=== PATIENT | female | born 1955 | race Caucasian/White ===

== ENCOUNTER → 2016-07-15 | Outpatient (CLI) | payer OTHER, MEDICAID | LOC: FIMAGING 09:44 | PROVIDERS: ATTEND Physician Assistant | DX: M54.12 Radiculopathy, cervical region (principal); M50.31 Other cervical disc degeneration, high cervical region; M50.321 Other cervical disc degeneration at C4-C5 level ==

== ENCOUNTER → 2017-04-06 | Outpatient (CLI) | payer OTHER, MEDICAID | LOC: BHFA 11:30 | PROVIDERS: ATTEND Internal Medicine Cardiovascular Disease | DX: R01.1 Cardiac murmur, unspecified (principal) ==

== ENCOUNTER → 2017-07-03 | Outpatient (CLI) | payer OTHER, MEDICAID ==
[~2017-07-03] MED LIST: IOPAMIDOL (ISOVUE-300) 100 ML BTL ONE
== END ==
LOC: FIMAGING 11:48
PROVIDERS: ATTEND Family Medicine
DX: R10.13 Epigastric pain (principal); R14.0 Abdominal distension (gaseous); K59.00 Constipation, unspecified; K46.9 Unspecified abdominal hernia without obstruction or gangrene; I70.0 Atherosclerosis of aorta; M41.9 Scoliosis, unspecified; M51.36 Other intervertebral disc degeneration, lumbar region; M48.061 Spinal stenosis, lumbar region without neurogenic claudication; Z85.3 Personal history of malignant neoplasm of breast
CPT/HCPCS: 74177; Q9967

== ENCOUNTER → 2017-08-15 | Outpatient (CLI) | payer OTHER, MEDICAID | LOC: BMCIMAGING 15:15 | PROVIDERS: ATTEND Internal Medicine Hematology & Oncology | DX: Z13.820 Encounter for screening for osteoporosis (principal); M85.89 Other specified disorders of bone density and structure, multiple sites; Z85.3 Personal history of malignant neoplasm of breast; Z87.81 Personal history of (healed) traumatic fracture ==

== ENCOUNTER 2018-04-27 10:49 | Observation (INO) | payer OTHER, MEDICAID ==
[2018-04-27] MEDS ORDERED: LR 1,000 ML IV ONE (10:58)
--- NOTE | 2018-04-27 13:58 | PDANEPAE ---
ANE History of Present Illness EGD. patient sustained syncopal fall this AM - workup in ED negative for acute intracranial process. ANE Past Medical History - Cardiovascular History Hx Hypertension: No Hx Arrhythmias: No Hx Chest Pain: No Hx Coronary Artery / Peripheral Vascular Disease: No Hx CHF / Valvular Disease: No Hx Palpitations: No Cardiovascular History Comment: pt unsure if she has any cardiac dx. Pt stated her Dr said not to worry there might be a slight thing - Pulmonary History Hx COPD: No Hx Asthma/Reactive Airway Disease: No Hx Recent Upper Respiratory Infection: Yes Hx Oxygen in Use at Home: No Hx Sleep Apnea: Yes Sleep Apnea Screening Result - Last Documented: Positive Pulmonary History Comment: hx of jen- has home o2 but doesn't use - Neurologic History Hx Cerebrovascular Accident: No Hx Seizures: No Hx Dementia: No Neurologic History Comment: DDD - Endocrine History Hx Diabetes: No Hypothyroid: Yes Obesity: no Endocrine History Comment: hypothyroidism. hx of hypoglycemia - Renal History Hx Renal Disorders: No - Liver History Hx Hepatic Disorders: No - Neurological & Psychiatric Hx Hx Neurological and Psychiatric Disorders: Yes Neurological / Psychiatric History Comment: anxiety. depression - Cancer History Hx Cancer: Yes Cancer History Comment: Left Breast CA with bilateral mastectomy and reconstruction - Congenital Disorder History Hx Congenital Disorders: No - GI History Hx Gastrointestinal Disorders: Yes Gastrointestinal History Comment: hx of rectal prolapse with colon resection. bloating lots of gas - Other Health History Other Health History: fibromyalgia. full set of dentures. wears glasses. Pt states that she thinks she has a hole in her nose as she whistles - Chronic Pain History Chronic Pain: Yes (neck, shoulders and back) - Surgical History Prior Surgeries: 03/16/15 right TKA with Latha. 08/14/14 Bilateral mastectomy and reconstruction with Wilberto/ [facility]. 01/24/13 EUA for rectal prolapse surgery with Jorge. 08/28/12 low anterior colon resection d/t rectal prolapse with Jorge TIMUR Review of Systems Review of Systems: - Exercise capacity METS (RN): 3 METS ANE Patient History - Allergies Allergies/Adverse Reactions: No Known Allergies Allergy (Verified 04/27/18 11:37) - Home Medications Home medications: home medication list seen and reviewed Home Medications: DULoxetine [Cymbalta 60 MG (*)] 02/28/14 [Last Taken 03/15/15 21:00] LORazepam [Ativan (*)] PRN 02/28/14 [Last Taken 03/16/15 04:30] Levothyroxine [Synthroid 100 mcg (*)] 02/28/14 [Last Taken 03/16/15 04:30] Herbals/Supplements -Info Only 07/25/14 [Last Taken 03/09/15] Exemestane [Aromasin] 02/20/15 [Last Taken 03/15/15 21:00] oxyCODONE CR [Oxycontin] TID 02/20/15 [Last Taken 03/16/15 04:30] oxyCODONE IR [Oxycodone Ir (*)] TID 02/20/15 [Last Taken 03/16/15 04:30] Ibuprofen [Motrin (*)] PRN 02/25/15 [Last Taken 03/02/15] Flexeril 10 MG (*) 11/27/17 [Last Taken Unknown] QUEtiapine FUMARATE HS 11/27/17 [Last Taken Unknown] buPROPion [Wellbutrin 75mg (*)] 75 mg PO 04/27/18 [Last Taken Unknown] - Smoking Hx Smoking Status: Never smoked - Family Anes Hx Family Hx Anesthesia Complications: none ANE Labs/Vital Signs - Vital Signs Height: 157.48 cm Weight: 56.699 kg ANE Physical Exam - Airway Neck exam: FROM Mallampati Score: Class 1 Mouth exam: poor dentition - Pulmonary Pulmonary: no respiratory distress - Cardiovascular Cardiovascular: regular rate and rhythym - ASA Status ASA Status: III ANE Anesthesia Plan Anesthesia Plan: GA with mask
[2018-04-27] MEDS ORDERED: fentaNYL 100 MCG/2 ML INJ ONE (14:00)
[2018-04-27] MEDS ORDERED: PROPOFOL 200 MG/20 ML VIAL ONE ×2 (14:00)
[2018-04-27] MEDS ORDERED: LIDOCAINE 2% 5 ML SDV ONE (14:04)
--- NOTE | 2018-04-27 14:07 | PDGENHP ---
History & Physical Chief Complaint: iron def anemia History of Present Illness: iron def anmia, hx breast cancer Pertinent Past, Social, Family History: no tobacoo, no aclohol. no cc. hx breat cancer, sleep apnea Relevant Physical Exam: A+Ox3. CTA. S1s2. +BS soft, nt Cardiorespiratory Assessment: class 3
[2018-04-27] MEDS ORDERED: LR 500 ML IV PRN (14:33)
[2018-04-27] MEDS ORDERED: oxyCODONE IR 5 MG TAB PO PRN (14:33)
[2018-04-27] MEDS ORDERED: NALOXONE HCL 0.4 MG/ML INJ IVP PRN (14:33)
[2018-04-27] MEDS ORDERED: ONDANSETRON 4 MG/2 ML VIAL IVP PRN ×2 (14:33→17:00)
[2018-04-27] MEDS ORDERED: HYDROCODONE/APAP 5/325 TAB PO PRN (14:33)
[2018-04-27] MEDS ORDERED: ACETAMINOPHEN 500 MG TAB PO PRN (14:33)
[2018-04-27] MEDS ORDERED: ALBUTEROL 3 ML DEYVIAL IH PRN (14:33)
[2018-04-27] MEDS ORDERED: HYDROmorphONE/DILAUDID 2 MG/ML INJ IVP PRN (14:33)
[2018-04-27] MEDS ORDERED: DIAZEPAM 5 MG/ML 1 ML SYR IVP PRN (14:33)
[2018-04-27] MEDS ORDERED: fentaNYL 100 MCG/2 ML INJ IVP PRN (14:33)
--- NOTE | 2018-04-27 14:33 | POSTANESTH ---
Post Anesthetic Evaluation Cardiovascular Status: Normal, Stable Respiratory Status: Normal, Stable Level of Consciousness/Mental Status: Can Participate in Eval, Mildly Sleepy, Arousable Pain Control: Adequate, Prn Tx Ordered Nausea/Vomiting Control: Adequate, Prn Tx Ordered Complications Possibly Related to Anesthesia: None Noted
--- NOTE | 2018-04-27 15:04 | GIREPORT ---
[facility] Surgical Services - Endoscopy Department Patient Name: Toma Baeza Procedure Date: 04/27/2018 2:12 PM Patient Type: Outpatient Attending MD/ ER Physician: Joaquin Rendon MD Procedure: Upper GI endoscopy Indications: Suspected upper gastrointestinal bleeding in patient with unexplained i ammon deficiency anemia Providers: Joaquin Rendon MD Referring MD: Kimberlee Taylor MD, Jluis Monroy MD Medicines: Propofol per Anesthesia Complications: No immediate complications. Estimated blood loss: Minimal. Description of Procedure: After obtaining informed consent, the endoscope was passed under direct vision. Throughout the procedure, the patient's blood pressure, pulse, and oxygen saturations were monitored continuously. The Endoscope was intro duced through the mouth, and advanced to the third part of duodenum. The uppe r GI endoscopy was accomplished without difficulty. The patient tolerated th e procedure well. Findings: The examined esophagus was normal. Scattered mild inflammation characterized by erosions, erythema, friabi lity and granularity was found at the incisura and in the gastric antrum. Biopsies were taken with a cold forceps for histology. Estimated blood loss was minimal. The examined duodenum was normal. Biopsies for histology were taken wit h a cold forceps for evaluation of celiac disease. Estimated blood loss was minimal. The exam was otherwise without abnormality. Estimated Blood Loss: Estimated blood loss was minimal. Post Op Diagnosis: - Normal esophagus. - Gastritis. Biopsied. - Normal examined duodenum. Biopsied. - The examination was otherwise normal. Recommendation: - Await pathology results. - My office will call with the pathology result with 5-7 days. If you h ave not heard from my office by 12-14, do not assume the pathology is enrique l, please call [phone] to get the pathology results. - Use Protonix (pantoprazole) 40 mg PO daily. - Perform a colonoscopy today. - Return to referring physician as previously scheduled. - Thank you for allowing me to help in your patient's care. Do not hesi fleming to call with any questions. Attending Participation: I personally performed the entire procedure. Julieta Puga M.D Joaquin Rendon MD 04/27/2018 3:03:30 PM This report has been signed electronicallyMatthew MD Julieta Number of Addenda: 0 Note Initiated On: 04/27/2018 2:12 PM [email or web address]
--- NOTE | 2018-04-27 15:42 | GIREPORT ---
[facility] Surgical Services - Endoscopy Department Patient Name: Toma Baeza Procedure Date: 04/27/2018 2:22 PM Patient Type: Outpatient Attending MD/ ER Physician: Joaquin Rendon MD Procedure: Colonoscopy Indications: Iron deficiency anemia Providers: Joaquin Rendon MD Referring MD: Kimberlee Taylor MD, Jluis Monroy MD Medicines: Propofol per Anesthesia = IV general with spontaneous respirations Complications: No immediate complications. Estimated blood loss: None. Description of Procedure: After obtaining informed consent, the scope was passed under direct vis ion. Throughout the procedure, the patient's blood pressure, pulse, and oxyg en saturations were monitored continuously. The Colonoscope with irrigatio n channel was introduced through the anus and advanced to the cecum, identified by the appendiceal orifice, ileocecal valve and palpation. T he colonoscopy was performed without difficulty. The patient tolerated the procedure well. The quality of the bowel preparation was poor. Findings: The digital rectal exam findings include decreased sphincter tone. A large amount of extensive amounts of stool was found in the entire co jones, interfering with visualization. Lavage of the area was performed using copious amounts of sterile water, resulting in incomplete clearance wit h continued poor visualization. The colon (entire examined portion) appeared normal. The exam was otherwise without abnormality. Estimated Blood Loss: Estimated blood loss: none. Post Op Diagnosis: - Preparation of the colon was poor. - Decreased sphincter tone found on digital rectal exam. - Stool in the entire examined colon. - The entire examined colon is normal. No large lesions noted, may have missed small lesions - good view of cecum and ascending, poor view of splenic flexure and distal colon. - The examination was otherwise normal. - No specimens collected. Recommendation: - Resume previous diet. - Repeat colonoscopy in 3 years for screening purposes. - Patient has a contact number available for emergencies. The signs and symptoms of potential delayed complications were discussed with the pat ient. Return to normal activities tomorrow. Written discharge instructions we re provided to the patient. - Continue present medications. - Discharge patient to home (ambulatory). - Return to primary care physician as previously scheduled. - Thank you for allowing me to help in your patient's care. Do not hesi fleming to call with any questions. - See EGD for other recommendations - it anemia doesn't resolve with treatement of her gastritis, then she will need a small bowel capsule s tudy. Attending Participation: I personally performed the entire procedure. Julieta Puga M.D Joaquin Rendon MD 04/27/2018 3:42:08 PM This report has been signed electronicallyMattbrent Rendon MD Number of Addenda: 0 Note Initiated On: 04/27/2018 2:22 PM Total Procedure Duration Time 0 hours 31 minutes 13 seconds [email or web address]
[2018-04-27] MEDS ORDERED: ONDANSETRON DISINTEGRATING 4 MG TAB PO PRN (17:00)
[2018-04-27] MEDS ORDERED: ACETAMINOPHEN 325 MG TAB PO PRN (17:00)
[2018-04-27] MEDS ORDERED: NS W/ 20 KCl/L 1,000 ML IV SCH (17:00)
--- NOTE | 2018-04-27 18:06 | GHP ---
DATE OF ADMISSION: 04/27/2018 CHIEF COMPLAINT: Frequent falls. HISTORY OF PRESENT ILLNESS: This is a 62-year-old female who, today, underwent an elective upper end oscopy as well as colonoscopy. When she presented for her workup, she reported that she had fallen t his morning and hit her head. She was thus sent down to the emergency department for clearance. She had an unremarkable head CT scan at that time. She did have a wound there that was cleaned extensiv carlos. She was cleared for her endoscopies. She then underwent upper and lower endoscopies. Her uppe r endoscopy showed gastritis that was biopsied. Recommendation was to use Protonix daily. The reaso n for these procedures was anemia. She then underwent a colonoscopy. This was relatively unremarkab le. I was asked to admit the patient because of the falls and that she does not have anybody to look after her tonight. She tells me that she fell this morning because she was dizzy and lightheaded. She fell forward and hit her head. She did not lose consciousness. She has not had any falls other than this in the last year. She believes that this was due to her fasting as well as the prep that she did for her colono scopy. She is not having any chest pain or shortness of breath. PAST MEDICAL/SURGICAL HISTORY: 1. Major depressive disorder. 2. Hypothyroid. 3. Fibromyalgia. 4. Chronic pain, on continuous narcotics. 5. Breast cancer, status post mastectomy, on hormonal treatment. 6. Rectal prolapse, status post rectopexy. 7. Right knee surgery. 8. Spinal injections. MEDICATIONS: Please see medication reconciliation. ALLERGIES: No known drug allergies. FAMILY HISTORY: Mother had liver cancer. SOCIAL HISTORY: She does not drink or smoke. She lives alone with her cat. REVIEW OF SYSTEMS: A 10-point review of systems is conducted and is negative except per HPI. PHYSICAL EXAM: VITAL SIGNS: Blood pressure 121/68, heart rate 76, respiration rate 19, sat 94% on r oom air, temperature is 36.8. GENERAL: The patient is a pleasant female who appears somewhat sleepy , but wakes easily and answers questions appropriately. HEENT: Shows her to have a bandage over her forehead. CARDIOVASCULAR: Regular rate and rhythm. No murmurs, rubs, or gallops. PULMONARY: Sara gs clear to auscultation bilaterally. ABDOMEN: Soft, nontender, nondistended. SKIN: Shows no rash . : No Bhagat. NEUROLOGIC: Shows her to be alert and oriented x3. She has a nonfocal neurologic exam. PSYCHIATRIC: Shows her to have a mildly depressed affect. LABORATORY DATA: Notable for of potassium a 3.2, calcium 7.9, hemoglobin of 11.1, white count of 5.2 . DATA: 1. I reviewed her head CT, as above. 2. I personally viewed and interpreted her EKG. This shows sinus rhythm. She has mild T-wave judd ening in V1, V2, and V3. IMPRESSION/PLAN: 1. Fall: Appears mechanical. Certainly may be due to dehydration. Would also be concerned that estevan castellanos is on multiple psychoactive medications; I am counting 9 based on her med list. Not finding anythi ng else on my exam or per history of serious concern. I think it is reasonable to have PT and OT see her. We will ask Case Management for their input as well to make sure she has a safe living situati on. Will discuss with her regarding decreasing some of her centrally-acting medications, if she is w illing. 2. Anemia: This was the reason she had her upper and lower endoscopies today. She is followed by Marina Taylor. Her counts are down slightly from her last check; will recheck again tomorrow morning. This is normocytic, potentially due to gastritis. 3. Hypokalemia: Will replete with IV fluids and potassium. 4. Chronic pain on continuous narcotics. Will continue these for now. 5. Breast cancer. Continue exemestane. 6. Hypothyroid: Synthroid. /[id number]/MODL
[2018-04-28 05:17] LABS: PLATELET COUNT 309 10^3/uL (150-400)
[2018-04-28] MEDS ORDERED: POTASSIUM CL 20 MEQ TAB PO ONE (06:37)
[2018-04-28] MEDS ORDERED: PANTOPRAZOLE SODIUM 40 MG TAB PO SCH (09:00)
[2018-04-28 15:10] VITALS: BP 144/87
--- NOTE | 2018-04-28 16:21 | ASMTLACE ---
LACE Length of stay for Answers: Less than 1 day current admission Acuity / Level of Answers: No Care: Did the patient have an inpatient admission? Comorbidities - select Answers: Any tumor (including all that apply lymphoma or leukemia) Opioid dependence / Chronic pain Other Notes: Hypothyroid, fibromyalg ia # of Emergency department Answers: 1-2 visits in the last 6 months Social determinants Answers: Mental health diagnosis (anxiety, depression, pers onality disorders, etc.) Score: 11 Date Signed: 04/28/2018 04:21 PM Electronically Signed By:Fariha Jones RN
--- NOTE | 2018-04-28 16:31 | ASDISCHSUM ---
Discharge Information Plan Status:Home with No Needs Medically Cleared to Leave:04/27/2018 Discharge Date:04/28/2018 04:01 PM CM D/C Disposition:Home, Routine, Self-Care ADT D/C Disposition:Home, Routine, Self-Care Projected Discharge Date:04/28/2018 04:01 PM Transportation at D/C:Family Discharge Delay Reason: Follow-Up Date:04/28/2018 04:01 PM Discharge Slot:2 - 12:01 pm - 18:00 pm Final Diagnosis:Mechanical fall, anemia, s/p elective upper EGD and colonoscopy Placement Information Patient Contact Information Contact Name:PASQUALE Relationship:Daughter Address: City:[place] Alternate Phone: [facility]/Zip Code:[place] Email: Financial Information Financial Class:Medicare Primary Plan Desc:MEDICARE OUTPATIENT Primary Plan Number:[id number] Secondary Plan Desc:MEDICAID HEALTH [place] Secondary Plan Number:[id number] Assessment Information LACE LACE Length of stay for Answers: Less than 1 day current admission Acuity / Level of Answers: No Care: Did the patient have an inpatient admission? Comorbidities - select Answers: Any tumor (including all that apply lymphoma or leukemia) Opioid dependence / Chronic pain Other Notes: Hypothyroid, fibromyalg ia # of Emergency department Answers: 1-2 visits in the last 6 months Social determinants Answers: Mental health diagnosis (anxiety, depression, pers onality disorders, etc.) Score: 11 Date Signed: 04/28/2018 04:21 PM Electronically Signed By:Fariha Jones RN [facility] CM Progress Note CM Note CM Note Notes: Reviewed chart. Pt admitted for an elective upper EGD and colonscopy secondary to anemia. Pt reported a mechanical fall prior to her procedure and was sent to the ED for surgical clearance. History includes breast cancer, major depressive disorder, chronic pain with narcotic use, hypothyroid, fibromyalgia, rectal prolapse, and right knee surgery. Pt lives alone, she reports having an elevator to access her place. The pt also reports receiving private duty assistance two days per week for grocery shopping and house cleaning. PT/OT cleared pt for home. Pt to discharge home independently with no identified needs. No IM/RAMOS signed, admission less than 24 hrs. Pt to follow up as directed. CM available for any further issues or concerns. Discharge Plan: Home independently Date Signed: 04/28/2018 04:28 PM Electronically Signed By:Fariha Jones RN Intervention Information
--- NOTE | 2018-04-28 21:24 | GDS ---
FINAL DIAGNOSES: 1. Status post EGD and colonoscopy. 2. Fall. 3. Anemia. 4. Hypokalemia. 5. Chronic pain on continuous narcotics. 6. Breast cancer. 7. Hypothyroid. HOSPITAL COURSE: This is a 62-year-old female, who had a planned outpatient upper endoscopy as well as lower endoscopy scheduled for anemia. When she reported, she noted that she had fallen and hit he r head earlier in the day. She was thus taken down to the ED and cleared for her procedures. Postop eratively, Dr. Rendon was concerned about her and requested that she would be admitted overnight. Nancy castellanos notably had some rudolph on her face from when she had been cooking lobato with a grease splatter. Nancy castellanos tells me she had not lost consciousness. She had fallen because she was dizzy, lightheaded as she had been fasting and undergoing a colonoscopy prep. She received hydration overnight. She was monit ored on telemetry with no events. She was seen by social work case manager who felt as though her living situati on is reasonable (she lives alone, but she has help twice a week.) She was seen by PT and OT, who luana th cleared her for discharge home. She was thus discharged in stable condition. I am concerned that her multiple psychoactive medications are impairing her overall quality of life and would consider a s an outpatient titrating these down. She was otherwise discharged in stable condition. STUDIES PENDING AT TIME OF DISCHARGE: Pathology from her endoscopy. She should follow up with Dr. Rendon for this. /[id number]/MODL
== END 2018-04-28 16:01 | disposition home or self-care (01) ==
LOC: FSGY 10:49 → F3E 17:00 → F3N 18:46
PROVIDERS: ADMIT Student in an Organized Health Care Education/Training Program; ATTEND Student in an Organized Health Care Education/Training Program
DX: S09.90XA Unspecified injury of head, initial encounter (principal); D50.9 Iron deficiency anemia, unspecified; W19.XXXA Unspecified fall, initial encounter; K29.70 Gastritis, unspecified, without bleeding; T20.00XA Burn of unspecified degree of head, face, and neck, unspecified site, initial encounter; X10.2XXA Contact with fats and cooking oils, initial encounter; Y92.000 Kitchen of unspecified non-institutional (private) residence as the place of occurrence of the external cause; E87.6 Hypokalemia; Y93.G3 Activity, cooking and baking; G89.29 Other chronic pain; Z85.3 Personal history of malignant neoplasm of breast; E03.9 Hypothyroidism, unspecified; E86.0 Dehydration; M79.7 Fibromyalgia; F32.9 Major depressive disorder, single episode, unspecified
CPT/HCPCS: 43239; 45378; 97161; 97165; 97535; G0378; G8978; G8979; G8980; G8987; G8988; G8989; J2704; J3010

== ENCOUNTER 2018-04-27 11:29 | Emergency (ER) | payer OTHER, MEDICAID ==
--- NOTE | 2018-04-27 11:59 | EDPHY ---
HPI/HX/ROS/PE/MDM Narrative: CHIEF COMPLAINT: Syncope, fall, head injury HPI: The patient is a 62 y/o female complaining of headache secondary to a syncopal event and fall at home this morning. She started a colon prep regimen yesterday for a colonoscopy and endoscopy scheduled later today. While getting dressed in her apartment around 10:00 she became lightheaded and fell, striking her forehead. She does not think she lost consciousness and remembers the entire event. She denies other trauma, weakness, paresthesias, midline spinal pain, recent illness, or other recent trauma. She currently feels nearly back to baseline. REVIEW OF SYSTEMS: A comprehensive 10 system review of systems is otherwise negative aside from elements mentioned in the history of present illness. PMH: Rectal prolapse with repairs x2, fibromyalgia, depression, anxiety, chronic back pain, hypothyroidism, bilateral mastectomy, sleep apnea. SOCIAL HISTORY: Lives in [place]. Disabled. Single. PHYSICAL EXAM: General:Patient is alert, in no acute distress. Head: Large hematoma right side of forehead with L-shaped laceration, 2cm total length - does not appear acute. ENT:Eyes are normal to inspection. ENT inspection normal. Neck: Normal inspection. Full range of motion. Respiratory:No respiratory distress. Breath sounds normal bilaterally. Cardiovascular: Regular rate and rhythm. Strong peripheral pulses. Normal cap refill. Abdomen:The abdomen is nontender to palpation. There are no peritoneal signs. Back: Normal to inspection. No tenderness to palpation. Skin: Normal color. No rash. Warm and dry. Extremities: Normal appearance. Full range of motion. Neuro: Oriented x3. Normal motor function. Normal sensory function. ED Course: This is a 62 y/o female who presents after a syncopal event this morning a few hours ago. She has a right forehead hematoma and L-shaped laceration that does not appear to be a few hours old as she reports. Plan for IV, labs, EKG, head CT , wound care. 1L IV NS ordered. The 12 lead EKG was interpreted by myself. Sinus mechanism. See hard copy and/ or "tracemaster" electronic copy for interpretation. Head CT: negative. Wound on forehead cleaned extensively. This continues to appear like an injury that is at least 1-2 days old, but patient continues to state this occurred this morning. She states she would like to proceed with plan for endoscopy. I have contacted Dr. Rendon. 1314: Consulted with Dr. Rendon, GI. Patient will be discharged then go to their office to complete her scopes. - Data Points Imaging Results: Imaging Impressions Head CT 04/27/18 12:02 Impression: No acute intracranial process. Imaging: Discussed imaging studies w/ call out operator Radiologist, I viewed and interpreted images myself Laboratory Results: Laboratory Results 04/27/18 12:00 04/27/18 12:00 04/27/18 04/27/18 12:00 12:00 WBC 5.24 10^3/uL 10^3/uL (3.80-9.50) RBC 4.03 10^6/uL L 10^6/uL (4.18-5.33) Hgb 11.1 g/dL L g/dL (12.6-16.3) Hct 33.5 % L % (38.0-47.0) MCV 83.1 fL fL (81.5-99.8) MCH 27.5 pg L pg (27.9-34.1) MCHC 33.1 g/dL g/dL (32.4-36.7) RDW 14.6 % % (11.5-15.2) Plt Count 293 10^3/uL 10^3/uL (150-400) MPV 9.0 fL fL (8.7-11.7) Neut % (Auto) 64.7 % % (39.3-74.2) Lymph % (Auto) 20.2 % % (15.0-45.0) [place] % (Auto) 14.1 % H % (4.5-13.0) Eos % (Auto) 0.0 % L % (0.6-7.6) Baso % (Auto) 0.6 % % (0.3-1.7) Nucleat RBC Rel Count 0.0 % % (0.0-0.2) Absolute Neuts (auto) 3.39 10^3/uL 10^3/uL (1.70-6.50) Absolute Lymphs (auto) 1.06 10^3/uL 10^3/uL (1.00-3.00) Absolute Monos (auto) 0.74 10^3/uL 10^3/uL (0.30-0.80) Absolute Eos (auto) 0.00 10^3/uL L 10^3/uL (0.03-0.40) Absolute Basos (auto) 0.03 10^3/uL 10^3/uL (0.02-0.10) Absolute Nucleated RBC 0.00 10^3/uL 10^3/uL (0-0.01) Immature Gran % 0.4 % % (0.0-1.1) Immature Gran # 0.02 10^3/uL 10^3/uL (0.00-0.10) Sodium 137 mEq/L mEq/L (135-145) Potassium 3.2 mEq/L L mEq/L (3.5-5.2) Chloride 103 mEq/L mEq/L (97-110) Carbon Dioxide 25 mEq/l mEq/l (22-31) Anion Gap 9 mEq/L mEq/L (6-14) BUN 13 mg/dL mg/dL (7-23) Creatinine 0.7 mg/dL mg/dL (0.6-1.0) Estimated GFR > 60 Glucose 88 mg/dL mg/dL (70-100) Calcium 7.9 mg/dL L mg/dL (8.5-10.4) Medications Given: Discontinued Medications Sodium Chloride (Ns) 1,000 mls @ 0 mls/hr IV EDNOW ONE; Wide Open PRN Reason: Protocol Stop: 04/27/18 12:03 Last Admin: 04/27/18 12:03 Dose: 1,000 mls General Time Seen by Provider: 04/27/18 11:48 Initial Vital Signs: Initial Vital Signs Temperature (C) 37.1 C 04/27/18 11:35 Heart Rate 88 04/27/18 11:35 Respiratory Rate 18 04/27/18 11:35 Blood Pressure 126/80 H 04/27/18 11:35 O2 Sat (%) 96 04/27/18 11:35 O2 Delivery Mode Room Air Allergies/Adverse Reactions: No Known Allergies Allergy (Verified 04/27/18 11:37) Home Medications: Medication Instructions Recorded DULoxetine [Cymbalta 60 MG (*)] 02/28/14 LORazepam [Ativan (*)] PRN 02/28/14 Levothyroxine [Synthroid 100 mcg 02/28/14 (*)] Herbals/Supplements -Info Only 07/25/14 Exemestane [Aromasin] 02/20/15 oxyCODONE CR [Oxycontin] TID 02/20/15 oxyCODONE IR [Oxycodone Ir (*)] TID 02/20/15 Ibuprofen [Motrin (*)] PRN 02/25/15 Flexeril 10 MG (*) 11/27/17 QUEtiapine FUMARATE HS 11/27/17 buPROPion [Wellbutrin 75mg (*)] 75 mg PO 04/27/18 Departure - Departure Disposition: Home, Routine, Self-Care Clinical Impression: Hematoma, Dehydration Syncope Qualifiers: Syncope type: unspecified Qualified Code(s): R55 - Syncope and collapse Condition: Good Instructions: Dehydration (ED), Syncope (ED), Hematoma (ED) Additional Instructions: Go directly to Dr. Rendon's office for your endoscopy and colonoscopy. Return to the ED for any worsening of condition. Referrals: Jluis Monroy MD [Primary Care Provider] - As per Instructions Joaquin Renodn MD [Medical Doctor] - As per Instructions Report Scribed for: Arturo Aranda Report Scribed by: Cindy Miranda Date of Report: 04/27/18 Time of Report: 12:39 Physician Review and Approval Statement: Portions of this note were transcribed by an ED scribe. I personally performed the history, physical exam, and medical decision making; and confirm the accuracy of the information in the transcribed note.
[2018-04-27] MEDS ORDERED: NS 1,000 ML IV ONE (12:02)
[2018-04-27 12:09] LABS: PLATELET COUNT 293 10^3/uL (150-400)
[2018-04-27 13:58] VITALS: BP 126/75
--- NOTE | 2018-04-30 10:52 | CPEKG ---
Test Reason : OPEN Blood Pressure : / mmHG Vent. Rate : 079 BPM Atrial Rate : 079 BPM P-R Int : 171 ms QRS Dur : 105 ms QT Int : 409 ms P-R-T Axes : 053 075 066 degrees QTc Int : 469 ms Sinus rhythm Borderline T abnormalities, anterior leads Confirmed by Arturo Aranda ([id number] on 04/30/2018 10:52:25 AM Referred By: Confirmed By:Arturo Aranda
== END 2018-04-27 13:57 | disposition still patient (30) ==
DX: S00.83XA Contusion of other part of head, initial encounter (principal); R55 Syncope and collapse; E86.0 Dehydration; M79.7 Fibromyalgia; W19.XXXA Unspecified fall, initial encounter; Y92.009 Unspecified place in unspecified non-institutional (private) residence as the place of occurrence of the external cause; Y93.9 Activity, unspecified; Y99.9 Unspecified external cause status

== ENCOUNTER → 2018-07-11 | Outpatient (CLI) | payer OTHER, MEDICAID | LOC: FIMAGING 06:46 | PROVIDERS: ATTEND Orthopaedic Surgery Orthopaedic Surgery of the Spine | DX: M48.02 Spinal stenosis, cervical region (principal); M43.12 Spondylolisthesis, cervical region; M53.82 Other specified dorsopathies, cervical region | CPT/HCPCS: 82607-90; 84481-90 ==

== ENCOUNTER 2018-08-22 22:01 | Emergency (ER) | payer OTHER, MEDICAID ==
[2018-08-22] MEDS ORDERED: LET GEL TOPICAL 1 EA SYR TP ONE (22:31)
--- NOTE | 2018-08-22 22:31 | EDPHY ---
General Time Seen by Provider: 08/22/18 22:05 Narrative: CLINICAL IMPRESSION: Scalp laceration, closed head injury ASSESSMENT/PLAN: 63-year-old female presents to the emergency department by ambulance after she reportedly stumbled in the bathroom striking the right side of her head on the bathtub. No reported loss of consciousness, altered mental status, seizure activity, antegrade or retrograde amnesia, nausea or vomiting. Patient is very "twitchy", seemingly altered but reports me this is normal and due to her mental health condition. She adamantly denies drugs and alcohol. CT scan of the head and cervical spine shows no evidence of acute intracranial hemorrhage or fracture. Laceration repaired as per chart notes. Tetanus up-to-date. Patient was encouraged to follow up with her primary care doctor and mental health provider. Post concussive in 2nd impact syndromes discussed. Warning signs return to ED sooner outlined and discharge. DIFFERENTIAL DX: Differential diagnosis for headache includes but not limited to subarachnoid hemorrhage, migraine headache, migraine varient headache, tension headache and infectious causes such as meningitis, pharyngitis and sinusitis. ED PROCEDURES: See lab and/or imaging results below Laceration Repair Verbal consent obtained by patient. Risks discussed, including but not limited to infection, pain, retained foreign body, need for additional repair, poor cosmetic result, tendon damage, nerve damage, poor wound healing, vascular damage. Alternatives to repair discussed. [place] protocol used to establish correct patient, procedure, equipment, desktop support engineer, and site. Anesthesia obtained by local infiltration. Anesthetized with 0.5% bupivacaine with epi. Laceration location right temporal scalp, length 2.5 cm, depth 3 mm, Repair type simple. Patient was prepped and draped in usual sterile fashion. Hemostasis achieved with direct pressure. Wound explored through full range of motion and entire depth of wound probed and visualized with gloved finger. No suspicion for nerve damage, tendon damage, underlying fracture, vascular damage, foreign body, or contamination. Area was cleansed with Shur-Cl[place] and irrigated with sterile saline as per protocol. No foreign body or material removed. Repair method oneida. Six oneida placed. Well aligned, closely approximated. wound was dressed with nothing. Patient tolerated well with no immediate complications. Wound care: Clean and dry x 24 hours, gently clean with soap and water, cover with topical antibiotic ointment/bandage. Suture/Staple removal: 10 Days ED COURSE: 10:20 p.m.: Patient seen and assessed by myself. Alert, oriented, mildly altered although I believe this is patient's underlying psychiatric condition. Answering all questions. No complaints of severe pain. Plan for CT head and neck. CT head and cervical spine negative for acute bleeding and fracture CHIEF COMPLAINT: Closed head injury HPI: 63-year-old female presents to the emergency department by ambulance after she reportedly lost her balance walking into the bathroom and fell striking the right side of her head on the bathtub. She reports no loss of consciousness. She called the ambulance. She reports she was trying to get into the tub. She denies headache, dizziness or vertigo. No nausea or vomiting. No neck pain. No upper extremity weakness or numbness. She is not anticoagulated. No history of recent closed head injury. She denies alcohol and illicit drug use. She did not strike any other part of her body and has no other physical complaints. PAST MEDICAL HISTORY: Depression, anxiety, sleep apnea, PTSD See nurse/triage notes for additional history if applicable Pertinent Past Surgical History: Rectal prolapse repair, orthopedic surgery, bilateral mastectomy Family History: Noncontributory Social History: Lives alone, denies alcohol and drug abuse. REVIEW OF SYSTEMS: All other systems negative Constitutional: No fever, no chills, appetite change. Eyes: No discharge, vision change ENT: No sore throat, congestion, ear pain. Cardiovascular: No chest pain, no palpitations. Respiratory: No cough, no shortness of breath. Gastrointestinal: No abdominal pain, no vomiting, diarrhea. Musculoskeletal: No back pain, joint swelling, joint pain, myalgias. Skin: No rashes, color change. Neurological: Positive for mild headache, denies dizziness, weakness. PHYSICAL EXAM: General Appearance: Alert, oriented, appears mildly altered although this may be side effect of patient's medication versus baseline mental health condition, cooperative, NAD, well hydrated, non-toxic appearing, hypertensive, tachycardic , no hypoxia. HEENT: Laceration noted to right temporal scalp. TMs are clear bilaterally no perforation or FB, no injection, no evidence of serous or mucopurulent otitis. No hemotympanum or Davison sign Oropharynx clear, dry mucous membranes, is no erythema or exudates, no tonsillar hypertrophy or asymmetry. Dentition without abnormality. No midface instability or suggestion of LeFort fracture Eyes: PERRLA, no acute vision change, nystagmus, swelling, discharge, pain or photosensitivity. Conjunctiva pink, no pallor or injection Neck: Supple, nontender, no lymphadenopathy, no midline pain, FROM, no meningismus. Respiratory: [There are no retractions, lungs are clear to auscultation. No chest wall tenderness or rib pain to palpation Cardiac: Regular rate and rhythm, no murmurs or gallops. Gastrointestinal: [Abdomen is soft, nontender Neurological: Alert and oriented x 3, CN 2-12 grossly intact, no limb ataxia, DTR's intact, normal sensation and strength Skin: Warm, dry, no rashes, no nodules on palpation. Laceration as noted above Musculoskeletal: Extremities are symmetrical, full range of motion, no tenderness, deformity, swelling, or erythema. Psychiatric: Patient is oriented X 3, there is no agitation. MEDICAL DECISION MAKING: Patient was seen independently. Secondary supervising physician at time of evaluation was Dr. Mcgowan. Diagnosis: Scalp fracture, closed head injury . New, requires workup Summary: See Assessment and Plan for summary of ED visit Independent visualization of images, tracing, or specimens: Yes. Decision to obtain medical records or history from someone other than the patient: EMS Patient Progress: Stable for discharge. - History Smoking Status: Never smoked - Objective Vital Signs: Initial Vital Signs Temperature (C) 37.0 C 08/22/18 22:06 Heart Rate 107 H 08/22/18 22:06 Respiratory Rate 20 08/22/18 22:06 Blood Pressure 146/68 H 08/22/18 22:06 O2 Sat (%) 99 08/22/18 22:06 O2 Delivery Mode Room Air Allergies/Adverse Reactions: No Known Allergies Allergy (Verified 08/22/18 22:09) Home Medications: Medication Instructions Recorded DULoxetine [Cymbalta 60 MG (*)] 60 mg PO BID 02/28/14 LORazepam [Ativan (*)] 0.5 mg PO DAILY PRN 02/28/14 Herbals/Supplements -Info Only 1 tab PO DAILY 07/25/14 Exemestane [Aromasin] 25 mg PO DAILY 02/20/15 Flexeril 10 MG (*) 10 mg PO DAILY 11/27/17 Aspirin EC [Aspirin EC 325 mg (*)] 325 mg PO HS PRN 04/27/18 Levothyroxine [Synthroid 75 mcg 75 mcg PO DAILY06 04/27/18 (*)] Quetiapine Fumarate [Seroquel] 400 mg PO HS 04/27/18 buPROPion XL [Wellbutrin 150mg XL] 150 mg PO DAILY 04/27/18 oxyCODONE HCL [Oxycontin] 20 mg PO BID 04/27/18 oxyCODONE IR [Oxycodone Ir (*)] 5 mg PO TID 04/27/18 Medications Given: Discontinued Medications Tetracaine/Epinephrine/Lidocaine (Let Gel Topical) 1 ea TP EDNOW ONE Stop: 08/22/18 22:32 Last Admin: 08/22/18 23:13 Dose: 1 ea Departure - Departure Disposition: Home, Routine, Self-Care Clinical Impression: Laceration of scalp Condition: Good Instructions: Staple Care (ED) Additional Instructions: DISCHARGE INSTRUCTIONS FROM YOUR DOCTOR Thank you for visiting our emergency department today. You were treated by a physician assistant plant control operator today and your case was reviewed with our ED Attending physician. Please keep in mind that discharge from the emergency department does not mean that there is nothing wrong - it simply means that we have not identified an emergency condition that requires further evaluation or treatment in the hospital. You should always plan to follow up with primary care for re- evaluation of your condition in the next 2-3 days. If you have been referred to a specialist, please call as soon as possible (today or tomorrow) to schedule your follow up appointment at the appropriate time. CT SCAN OF THE HEAD SHOWS NO BLEEDING IN THE BRAIN. NO NECK FRACTURES. LACERATION WAS REPAIRED WITH 6 ONEIDA. PLEASE HAVE SUTURES/ONEIDA REMOVED IN 10 DAYS. YOU CAN RETURN TO THE EMERGENCY DEPARTMENT OR YOUR PRIMARY CARE FOR SUTURE/STAPLE REMOVAL. AVOID SUBMERGING SUTURES/ONEIDA UNDERWATER FOR PROLONGED PERIOD OF TIME UNTIL REMOVED. KEEP WOUND CLEAN AND DRY, COVER WITH ANTIBIOTIC OINTMENT AND BAND-AID. RETURN TO EMERGENCY DEPARTMENT FOR REDNESS, SWELLING, DISCHARGE, WARMTH TO THE SKIN, OR ANY OTHER CONCERNS FOR INFECTION. People present with illnesses and injuries in different ways, and it is always possible that we have missed something. You may always return for re-evaluation if symptoms worsen or if they are not improving or if you develop new/different symptoms. Again, thank you for choosing our emergency department. We hope that you feel better. Referrals: Patient,NotPresent [Unknown] - As per Instructions [facility]Clinic] - 1-2 days without fail
[2018-08-23 00:48] VITALS: BP 135/88
== END 2018-08-23 00:47 | disposition home or self-care (01) ==
LOC: EDUNIT#
PROC: 0HQ0XZZ Repair Scalp Skin, External Approach (ICD-10-PCS; principal; 2018-08-22)
DX: S01.01XA Laceration without foreign body of scalp, initial encounter (principal); W01.198A Fall on same level from slipping, tripping and stumbling with subsequent striking against other object, initial encounter; Y92.002 Bathroom of unspecified non-institutional (private) residence as the place of occurrence of the external cause